=== PATIENT | female | born 1955 | race Caucasian/White ===

== ENCOUNTER 2017-09-05 06:45 | Day surgery (SDC) | payer OTHER ==
[2017-09-05] MEDS ORDERED: MIDAZOLAM HCL 5 MG/5 ML VIAL ONE (07:37)
[2017-09-05] MEDS: MIDAZOLAM HCL 5 MG/5 ML VIAL ONE ×2 (08:34→08:36)
[2017-09-05] MEDS: fentaNYL CITRATE/PF 100 MCG/2 ML AMP ONE ×2 (08:34→08:36)
[2017-09-05 11:20] VITALS: BP_SYST 116
== END 2017-09-05 11:20 | disposition home or self-care (01) ==
LOC: SMU 06:45 → SDS 06:45
PROVIDERS: ATTEND Surgery
DX: K44.9 Diaphragmatic hernia without obstruction or gangrene (principal); K29.70 Gastritis, unspecified, without bleeding; E66.9 Obesity, unspecified; J45.909 Unspecified asthma, uncomplicated; K21.9 Gastro-esophageal reflux disease without esophagitis; M19.90 Unspecified osteoarthritis, unspecified site
CPT/HCPCS: 36415; 43239; 87081; 88305; 88312; 88313; J2250; J3010

== ENCOUNTER 2017-10-11 09:52 | Day surgery (SDC) | payer OTHER ==
[~2017-10-11] VITALS: Ht 154.9 cm; Wt 102.5 kg
[2017-10-11] MEDS ORDERED: LR 1,000 ML IV SCH (14:16)
[2017-10-11] MEDS ORDERED: KETOROLAC TROMETHAMINE 30 MG VIAL ONE (14:20)
[2017-10-11] MEDS ORDERED: PROPOFOL 200MG/ 20ML VIAL (DIPRIVAN) IV ONE (14:20)
[2017-10-11] MEDS ORDERED: MIDAZOLAM HCL 5 MG/ML VIAL (VERSED) IV ONE (14:20)
[2017-10-11] MEDS ORDERED: LR 1,000 ML IV.SOLN IV ONE (14:20)
[2017-10-11] MEDS ORDERED: SEVOFLURANE 15 MIN GAS INH ONE (14:20)
[2017-10-11] MEDS ORDERED: NS IRRIG SOLN 1000 ML IR ONE (14:20)
[2017-10-11] MEDS ORDERED: BUPIVACAINE /PF 0.25% 30 ML VIAL INJ ONE (14:20)
[2017-10-11] MEDS ORDERED: fentaNYL CITRATE 250 MCG/5 ML AMP ONE (14:20)
[2017-10-11] MEDS ORDERED: SUCCINYLCHOLINE CHLORIDE 20 MG/ML(QUELICIN) ONE (14:20)
[2017-10-11] MEDS ORDERED: ROCURONIUM BROMIDE 10 MG/ML (ZEMURON) ONE (14:20)
[2017-10-11] MEDS ORDERED: METOCLOPRAMIDE HCL 10 MG/2 ML VIAL ONE (14:20)
[2017-10-11] MEDS ORDERED: ONDANSETRON HCL 4 MG/2 ML VIAL ONE (14:20)
[2017-10-11] MEDS ORDERED: DEXAMETHASONE SOD PHOSPHATE 4 MG/ML VIAL ONE (14:20)
[2017-10-11] MEDS ORDERED: MORPHINE 4 MG/ML INJ. SYRINGE IVP PRN ×3 (14:30→17:30)
[2017-10-11] MEDS ORDERED: MEPERIDINE HCL/PF 25 MG/ML DISP.SYRIN IVP PRN (14:30)
[2017-10-11] MEDS ORDERED: MORPHINE SULFATE 10 MG/ML VIAL IVP PRN (14:30)
[2017-10-11 17:19] VITALS: BP_SYST 112
[2017-10-11] MEDS ORDERED: ACETAMINOPHEN/CODEINE 300 MG-30 MG TABLET PO PRN (17:30)
[2017-10-11] MEDS ORDERED: ONDANSETRON HCL 4 MG/2 ML VIAL IVP PRN (17:30)
== END 2017-10-11 16:15 | disposition home or self-care (01) ==
LOC: SDS 09:52
PROVIDERS: ATTEND Surgery
DX: K64.8 Other hemorrhoids (principal); K64.4 Residual hemorrhoidal skin tags; E66.01 Morbid (severe) obesity due to excess calories; J45.909 Unspecified asthma, uncomplicated; M19.90 Unspecified osteoarthritis, unspecified site
CPT/HCPCS: 46255; 88304; 88305; 88342; J0330; J1100; J1885; J2250; J2405; J2704; J2765; J3010; J3490; J7120